=== PATIENT | female | born 1970 | race Caucasian/White ===

== ENCOUNTER 2016-03-14 13:38 | Emergency (ER) | payer OTHER ==
[~2016-03-14] VITALS: Ht 157.5 cm; Wt 73.0 kg
[~2016-03-14 13:38] MED LIST: MULT-506 PO; PRLSR20 PO
[2016-03-14 13:41] VITALS: TEMP 36.8; Ht 157.5 cm; Wt 73.0 kg
[2016-03-14] MEDS ORDERED: FLUO20CA35 PO (13:59)
[2016-03-14] MEDS ORDERED: SODIUM CHLORIDE 0.9% 500ML 500 ML IV STA (14:10)
[2016-03-14] MEDS ORDERED: ASPIRIN 81 MG CHEW PO STA (14:10)
[2016-03-14] MEDS ORDERED: MoRPHine SULFATE 2 MG/ML CARP IV STA (14:10)
[2016-03-14] MEDS ORDERED: ONDANSETRON INJ 2 MG/ML 2 ML VIAL IV STA (14:10)
--- NOTE | 2016-03-14 14:23 | EMERGENCY ROOM VISIT NOTE ---
History Report prepared by Ludy: Michelle Rees Under the Supervision of: Dr. Emily Hernandez M.D. First contact with patient: 13:51 Chief Complaint: ILLNESS Stated Complaint: CHEST PAINS, HEADACHE, NAUSEA History of Present Illness The patient is a 46 year old female who presents to the Emergency Room with complaints of resolved right-sided chest pain that occurred earlier today. The chest pain lasted about 30 minutes. The patient was at work when the pain started but she states that she wasn't doing anything exertional. The pain was mostly in the right side of her chest although she did has some pain in the left side of her chest. The pain radiated down her right arm and her right arm became numb. Her right hand was also tingling and cold. She then became diaphoretic and nauseous. She has experienced similar pain in the past but nothing as severe as today. The pain comes once every other month and nothing seems to trigger it. The patient ate breakfast this morning but did not eat anything else prior to the pain. She denies rhinorrhea, recent sinus infections , vomiting, diarrhea, and lower extremity edema. She developed a right-sided headache about 15 minutes after the pain started and still has the headache now. She describes the headache as a pressure. The patient is prone to headaches but states that this one feels different. She states that this one feels like the headache you get after you cry for a long time. The patient smoke 8-10 cigarettes a day which she has been doing for most of her adult life. The patient has a family history of heart disease. Source of History: patient Onset: earlier today Position: chest (right) Timing: resolved Associated Symptoms: + diaphoresis, + headache, + nausea, + numbness (right arm), No diarrhea, No vomiting Note: right arm pain, no rhinorrhea, no recent sinus infections, no lower extremity edema. Review of Systems See HPI for pertinent positives & negatives. A total of 10 systems reviewed and were otherwise negative. Past Medical & Surgical Medical Problems: (1) Anxiety and depression (2) GERD (gastroesophageal reflux disease) Surgical Problems: (1) H/O tubal ligation Family History Cancer Diabetes mellitus Gallbladder disease Heart disease Hypertension Kidney disease Kidney stones Lung disease Stroke Social History Smoking Status: Current Every Day Smoker Alcohol Use: none Drug Use: none Marital Status: single Occupation Status: employed Current/Historical Medications Scheduled Fluoxetine (Prozac), 60 MG PO DAILY Multivitamin (Multivitamin), 1 TAB PO DAILY Omeprazole (Prilosec), 20 MG PO DAILY Allergies Coded Allergies: Hydrocodone (Verified Adverse Reaction, Intermediate, NAUSEA, 03/14/16) Physical Exam Vital Signs Date Time Temp Pulse Resp B/P Pulse Ox O2 Delivery O2 Flow Rate FiO2 03/14/16 17:32 70 16 134/78 100 Room Air 03/14/16 15:22 70 18 136/77 100 Room Air 03/14/16 14:46 78 16 171/93 98 Room Air 03/14/16 13:41 36.8 85 18 157/92 99 Room Air Physical Exam Vital signs reviewed. General: Well-appearing female, in no significant distress. HEENT: No scleral icterus, PERRLA, neck supple. Atraumatic. Chest: Nontender to palpation over anterior chest wall. Cardiovascular: Regular rate and rhythm, no extra sounds. Pulmonary: Clear to auscultation bilaterally, normal work of breathing. Abdomen: Soft, nontender, nondistended, positive bowel sounds. Musculoskeletal: Atraumatic, no peripheral edema. Neurologic: Patient awake alert and oriented x 3, full strength in all 4 extremities. Cranial nerves 2 through 12 grossly intact. Skin: Warm, dry, no rash Medical Decision & Procedures ER Provider Diagnostic Interpretation: X-ray results as stated below per interpretation by me and the radiologist: CHEST ONE VIEW PORTABLE IMPRESSION: No active disease in the chest. Electronically signed by: Hussain Ring M.D. 03/14/2016 2:47 PM Dictated Date/Time: 03/14/2016 2:47 PM Laboratory Results 03/14/16 14:15 Red Blood Count 4.45, Mean Corpuscular Volume 84.3, Mean Corpuscular Hemoglobin 28.8, Mean Corpuscular Hemoglobin Concent 34.1, Mean Platelet Volume 9.5, Neutrophils (%) (Auto) 73.5, Lymphocytes (%) (Auto) 19.6, Monocytes (%) (Auto) 5.4, Eosinophils (%) (Auto) 1.1, Basophils (%) (Auto) 0.2, Neutrophils # (Auto) 4.77, Lymphocytes # (Auto) 1.27, Monocytes # (Auto) 0.35, Eosinophils # (Auto) 0.07, Basophils # (Auto) 0.01 03/14/16 14:15 Test 03/14/16 14:15 03/14/16 14:30 03/14/16 17:13 White Blood Count 6.48 K/uL (4.8-10.8) Red Blood Count 4.45 M/uL (4.2-5.4) Hemoglobin 12.8 g/dL (12.0-16.0) Hematocrit 37.5 % (37-47) Mean Corpuscular Volume 84.3 fL (80-100) Mean Corpuscular Hemoglobin 28.8 pg (25-34) Mean Corpuscular Hemoglobin Concent 34.1 g/dl (32-36) Platelet Count 273 K/uL (130-400) Mean Platelet Volume 9.5 fL (7.4-10.4) Neutrophils (%) (Auto) 73.5 % Lymphocytes (%) (Auto) 19.6 % Monocytes (%) (Auto) 5.4 % Eosinophils (%) (Auto) 1.1 % Basophils (%) (Auto) 0.2 % Neutrophils # (Auto) 4.77 K/uL (1.4-6.5) Lymphocytes # (Auto) 1.27 K/uL (1.2-3.4) Monocytes # (Auto) 0.35 K/uL (0.11-0.59) Eosinophils # (Auto) 0.07 K/uL (0-0.5) Basophils # (Auto) 0.01 K/uL (0-0.2) RDW Standard Deviation 40.4 fL (36.4-46.3) RDW Coefficient of Variation 13.2 % (11.5-14.5) Immature Granulocyte % (Auto) 0.2 % Immature Granulocyte # (Auto) 0.01 K/uL (0.00-0.02) Anion Gap 9.0 mmol/L (3-11) Est Creatinine Clear Calc Drug Dose 90.7 ml/min Estimated GFR () 116.7 Estimated GFR (Non- 100.7 BUN/Creatinine Ratio 13.7 (10-20) Calcium Level 8.4 mg/dl (8.5-10.1) Magnesium Level 2.1 mg/dl (1.8-2.4) Total Bilirubin 0.1 mg/dl (0.2-1) Direct Bilirubin < 0.1 mg/dl (0-0.2) Aspartate Amino Transf (AST/SGOT) 8 U/L (15-37) Alanine Aminotransferase (ALT/SGPT) 17 U/L (12-78) Alkaline Phosphatase 85 U/L (45-117) Total Creatine Kinase 45 U/L (26-192) Creatine Kinase MB 0.6 ng/ml (0.5-3.6) Creatine Kinase MB Ratio 1.3 (0-3.0) Total Protein 7.3 gm/dl (6.4-8.2) Albumin 3.6 gm/dl (3.4-5.0) Bedside D-Dimer 433 ng/mlFEU (0-450) Bedside Troponin I 0.000 ng/ml (0-0.045) Laboratory results per my review. Medications Administered Medications (Trade) Dose Ordered Sig/Román Route Start Time Stop Time Status Last Admin Dose Admin Morphine Sulfate (MoRPHine SULFATE INJ) 2 mg NOW STAT IV 03/14/16 14:10 03/14/16 14:13 DC 03/14/16 14:42 2 MG Ondansetron HCl 4 mg 4 mg NOW STAT IV 03/14/16 14:10 03/14/16 14:13 DC 03/14/16 14:42 4 MG Sodium Chloride (Nss 500ml) 500 ml @ 999 mls/hr Q31M STAT IV 03/14/16 14:10 03/14/16 14:40 DC 03/14/16 14:10 999 MLS/HR Aspirin (Aspirin Chew) 324 mg NOW STAT PO 03/14/16 14:10 03/14/16 14:13 DC 03/14/16 14:40 324 MG ECG Indication: chest pain Rate (beats per minute): 81 Rhythm: normal sinus Findings: no acute ischemic change, prolonged QT, no ectopy, other (QTc 497 ms) ED Course 1404: Past medical records reviewed. The patient was evaluated in room C8. A complete history and physical examination was performed. 1410: Ordered Aspirin 324 mg PO, Sodium Chloride 500 ml @ 999 mls/hr IV, Zofran 4 mg IV, Morphine Sulfate 2 mg IV 1722: Upon reevaluation, the patient appeared to have improvement of her symptoms. I discussed findings with her. She verbalized agreement of the treatment plan. She was discharged home. Medical Decision The patient is a 46 year old female who presents to the Emergency Room with complaints of resolved right-sided chest pain that occurred earlier today. Differentials include acute coronary syndrome, pulmonary embolus, aortic dissection, musculoskeletal pain, pneumonia, pleural effusion, pneumothorax This patient was evaluated and appeared to be in no significant distress. IV access was obtained and laboratory work was drawn. Patient was medicated with IV morphine and Zofran for her pain. She was hydrated with normal saline solution. The patient was given aspirin orally. Laboratory work reveals 2 sets of negative cardiac markers. EKG reveals no evidence of acute ischemic changes. Patient's headache improved significantly. The patient was reevaluated and felt stable for discharge. She was asked to follow-up with her primary care physician and return to the ER for worsening of symptoms or any medical concerns. Impression Primary Impression: Non-cardiac chest pain Additional Impression: Migraine headache Scribe Attestation The scribe's documentation has been prepared under my direction and personally reviewed by me in its entirety. I confirm that the note above accurately reflects all work, treatment, procedures, and medical decision making performed by me. Departure Information Dispostion Home / Self-Care Referrals Mango Rm PA-C (PCP) Forms HOME CARE DOCUMENTATION FORM, IMPORTANT VISIT INFORMATION, WORK / SCHOOL INSTRUCTIONS Patient Instructions [facility] Additional Instructions Diagnosis: Noncardiac chest pain Call your physician this week for reevaluation, you will need stress testing. Please stop smoking. Aspirin 81 mg daily. Return to the emergency department immediately for worsening of symptoms or any medical concerns. Problem Qualifiers Additional Impression: Migraine headache Migraine type: unspecified Status migrainosus presence: without status migrainosus Intractability: intractable Qualified Codes: G43.919 - Migraine , unspecified, intractable, without status migrainosus
--- NOTE | 2016-03-14 14:49 | DIAGNOSTIC IMAGING REPORT ---
CHEST ONE VIEW PORTABLE CLINICAL HISTORY: chest pain HEADACHE NAUSEA COMPARISON STUDY: No previous studies for comparison. FINDINGS: The cardiac and mediastinal contours are normal. There is no evidence of focal pulmonary consolidation. There is no evidence of failure. No pleural effusions are visualized.[ IMPRESSION: No active disease in the chest. Electronically signed by: Hussain Ring M.D. 03/14/2016 2:47 PM Dictated Date/Time: 03/14/2016 2:47 PM
[2016-03-14 14:58] LABS: BASO % 0.2 %; BASO ABS # 0.01 K/uL (0-0.2); COMPLETE YES; EOS % 1.1 %; HEMATOCRIT 37.5 % (37-47); IG% 0.2 %; LYMPH % 19.6 %; LYMPH ABS # 1.27 K/uL (1.2-3.4); MEAN CELL VOLUME 84.3 fL (80-100); MEAN CORPUSCULAR HEMOGLOBIN 28.8 pg (25-34); MEAN CORPUSCULAR HGB CONC 34.1 g/dl (32-36); MEAN PLATELET VOLUME 9.5 fL (7.4-10.4); MONO % 5.4 %; NEUT % 73.5 %; PLATELET COUNT 273 K/uL (130-400); RED BLOOD COUNT 4.45 M/uL (4.2-5.4); WHITE BLOOD COUNT 6.48 K/uL (4.8-10.8)
[2016-03-14 15:15] LABS: ALT/SGPT 17 U/L (12-78); AST/SGOT 8 U/L (15-37); BLOOD UREA NITROGEN 10 mg/dl (7-18); BUN/CREATININE RATIO 13.7 (10-20); CALCIUM 8.4 mg/dl (8.5-10.1); CARBON DIOXIDE 26 mmol/L (21-32); CHLORIDE 105 mmol/L (98-107); CREATININE 0.71 mg/dl (0.60-1.20); GLUCOSE 90 mg/dl (70-99); MAGNESIUM 2.1 mg/dl (1.8-2.4); POTASSIUM 3.6 mmol/L (3.5-5.1); SODIUM 140 mmol/L (136-145)
[2016-03-14 15:20] LABS: ALKALINE PHOSPHATASE 85 U/L (45-117); CKMB/CK RATIO 1.3 (0-3.0)
[2016-03-14 17:32] VITALS: BP 134/78; PULSE 70; O2SAT 100
== END 2016-03-14 17:59 | disposition home or self-care (01) ==
LOC: C.EDB 13:41 → C.EDC 17:59
DX: R07.89 Other chest pain (principal); G43.919 Migraine, unspecified, intractable, without status migrainosus; F41.8 Other specified anxiety disorders; K21.9 Gastro-esophageal reflux disease without esophagitis; F17.210 Nicotine dependence, cigarettes, uncomplicated; Z83.3 Family history of diabetes mellitus; Z82.49 Family history of ischemic heart disease and other diseases of the circulatory system; Z84.1 Family history of disorders of kidney and ureter; Z82.3 Family history of stroke; Z79.899 Other long term (current) drug therapy